=== PATIENT | male | born 1955 | race Caucasian/White ===

== ENCOUNTER 2018-01-03 17:27 | Emergency (ER) | payer SELFPAY ==
[~2018-01-03] VITALS: Ht 170.2 cm; Wt 70.0 kg
[2018-01-03] MEDS ORDERED: ASPI-986 PO (17:37)
[2018-01-03] MEDS ORDERED: ATOR10TA69 PO (17:37)
[2018-01-03] MEDS ORDERED: LORA-249 PO (17:37)
[2018-01-03] MEDS ORDERED: ENOX40DI8 SQ (17:37)
[2018-01-03] MEDS ORDERED: PANT20TA3 PO (17:37)
[2018-01-03] MEDS ORDERED: ONDANSETRON 4MG ODT PO STA (17:50)
[2018-01-03 18:47] LABS: BASOPHILS % 0.3 % (0.0-2.0); EOSINOPHILS % 0.2 % (0.0-5.0); HEMATOCRIT. 43.9 % (42.0-52.0); MEAN CORPUSCULAR HEMOGLOBIN 29.2 pg (28.0-32.0); MEAN CORPUSCULAR VOLUME 85.7 fL (80.0-94.0); MEAN PLATELET VOLUME 7.6 fl (7.4-10.4); MONOCYTES % 5.7 % (2.0-8.0); NEUTROPHILS % 81.8 % (40.0-76.0); PLATELET 245 x1000/uL (130-400); RED BLOOD CELL COUNT 5.12 mill/uL (4.7-6.1); RED CELL DISTRIBUTION WIDTH 13.6 % (11.6-14.6)
[2018-01-03 18:51] LABS: CHLORIDE 109 mEq/L (98-107)
[2018-01-03 20:58] VITALS: BP 134/73
== END 2018-01-03 21:19 | disposition home or self-care (01) ==
LOC: ER 17:27
DX: R11.2 Nausea with vomiting, unspecified (principal); R56.9 Unspecified convulsions; D64.9 Anemia, unspecified; J44.9 Chronic obstructive pulmonary disease, unspecified; K21.9 Gastro-esophageal reflux disease without esophagitis; F20.9 Schizophrenia, unspecified; Z79.899 Other long term (current) drug therapy
CPT/HCPCS: 36415; 80053; 85025; 99284; Q0162